=== PATIENT | male | born 1945 | race Two or more races ===

== ENCOUNTER → 2017-12-03 | Outpatient (CLI) | payer MEDICARE ==
[2017-12-03 14:46] LABS: HCT 37.3 % (39.0-53.0); HGB 12.3 gm/dL (13.0-17.5); MCH 29.9 pg (25.0-35.0); MCHC 33.1 g/dL (31.0-37.0); MCV 90.4 fL (80.0-100.0); Mean Platelet Volume 7.6; Platelet Count 166 k/uL (150-450); RBC 4.12 m/uL (4.30-5.90); RDW 13.9 % (11.5-15.5)
[2017-12-03 14:54] LABS: Anion Gap 13 mmol/L; Blood Urea Nitrogen 23 mg/dL (9-20); Calcium 9.4 mg/dL (8.4-10.2); Carbon Dioxide 25 mmol/L (22-30); Chloride 104 mmol/L (98-107); Glucose 96 mg/dL (74-99); Magnesium 1.6 mg/dL (1.6-2.3); Potassium 4.6 mmol/L (3.5-5.1); Sodium 142 mmol/L (137-145)
== END | disposition home or self-care (01) ==
LOC: LABWHC1 14:08
DX: I10 Essential (primary) hypertension (principal)
CPT/HCPCS: 36415; 80048; 83735; 83880; 85027

== ENCOUNTER → 2018-07-18 | Outpatient (CLI) | payer MEDICARE, OTHER ==
[2018-07-18 07:13] LABS: INR 1.1 (<1.2)
== END | disposition home or self-care (01) ==
LOC: LABWHC1 06:36
PROVIDERS: ATTEND Dentist Oral and Maxillofacial Surgery
DX: D68.9 Coagulation defect, unspecified (principal)
CPT/HCPCS: 36415; 85610

== ENCOUNTER → 2019-08-05 | Outpatient (CLI) | payer MEDICARE ==
[2019-08-05 16:33] LABS: INR 1.1 (<1.2); Prothrombin Time 11.5 sec (9.0-12.0)
== END | disposition home or self-care (01) ==
LOC: LABWHC1 15:35
PROVIDERS: ATTEND Dentist Oral and Maxillofacial Surgery
DX: Z51.81 Encounter for therapeutic drug level monitoring (principal); Z79.01 Long term (current) use of anticoagulants
CPT/HCPCS: 36415; 85610

== ENCOUNTER → 2020-06-02 | Outpatient (CLI) | payer MEDICARE ==
[2020-06-02 10:50] LABS: Basophils % (A) 1 %; Eosinophils # (A) 0.1 k/uL (0-0.7); Eosinophils % (A) 1 %; HCT 45.5 % (39.0-53.0); HGB 14.3 gm/dL (13.0-17.5); Lymphocytes # (A) 1.2 k/uL (1.0-4.8); Lymphocytes % (A) 18 %; MCH 29.5 pg (25.0-35.0); MCHC 31.5 g/dL (31.0-37.0); MCV 93.7 fL (80.0-100.0); Mean Platelet Volume 7.5; Monocytes # (A) 0.5 k/uL (0-1.0); Monocytes % (A) 8 %; Neutrophils # (A) 4.6 k/uL (1.3-7.7); Neutrophils % (A) 71 %; Platelet Count 149 k/uL (150-450); RBC 4.85 m/uL (4.30-5.90); RDW 14.1 % (11.5-15.5); WBC 6.6 k/uL (3.8-10.6)
[2020-06-02 10:51] LABS: Appearance,Urine Cloudy (Clear); Bacteria,Urine Rare /hpf; Bilirubin,Urine Negative (Negative); Blood,Urine Small (Negative); Color,Urine Yellow; Glucose,Urine (UA) Negative (Negative); Ketones,Urine Trace (Negative); Leukocyte Esterase,Urine Large (Negative); Mucus,Urine Many /hpf; Nitrite,Urine Negative (Negative); PH, Urine 6.5 (5.0-8.0); Protein,Urine 1+ (Negative); RBC,Urine 15 /hpf (0-5); Specific Gravity,Urine 1.027 (1.001-1.035); Squamous Epithelial Cell,Urine 1 /hpf (0-4); WBC,Urine >182 /hpf (0-5)
[2020-06-02 10:53] LABS: ALT 23 U/L (4-49); AST 23 U/L (17-59); African American GFR (CKD) >90 (>60 ml/min/1.73 sqM); Albumin 4.2 g/dL (3.5-5.0); Alkaline Phosphatase 63 U/L (38-126); Anion Gap 6 mmol/L; Blood Urea Nitrogen 29 mg/dL (9-20); Calcium 10.1 mg/dL (8.4-10.2); Carbon Dioxide 30 mmol/L (22-30); Chloride 105 mmol/L (98-107); Glucose 145 mg/dL (74-99); Non-African American GFR(CKD) 87 (>60 ml/min/1.73 sqM); Potassium 4.4 mmol/L (3.5-5.1); Sodium 141 mmol/L (137-145); Total Bilirubin 0.9 mg/dL (0.2-1.3); Total Protein 7.2 g/dL (6.3-8.2)
== END | disposition home or self-care (01) ==
LOC: LABPAT 09:23
PROVIDERS: ATTEND Urology
DX: Z01.818 Encounter for other preprocedural examination (principal); N40.1 Benign prostatic hyperplasia with lower urinary tract symptoms; E11.9 Type 2 diabetes mellitus without complications; R35.0 Frequency of micturition
CPT/HCPCS: 80053; 81001; 85025; 87086

== ENCOUNTER 2020-06-09 11:13 | Observation (INO) | payer MEDICARE ==
[2020-06-07 11:04] VITALS: BMI 30.1
--- NOTE | 2020-06-08 19:11 | P.GSHP ---
History of Present Illness H&P Date: 06/08/20 75 yo with a history with urine retention, bph with obstruction and incomplete voiding despite floamx bid and finasteride. He has a larger prostate on exam and a heavy trabeculated bladder. He comes for a bipolar turp The risks complications and alternatives have been discussed. 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, no residual effects-states hypertensive encephalopathy., History of Any Multi-Drug Resistant Organisms: None Reported Past Surgical History: Cardiac Ablation Past Anesthesia/Blood Transfusion Reactions: No Reported Reaction Past Psychological History: Anxiety Smoking Status: Former smoker Past Alcohol Use History: Rare Additional Past Alcohol Use History / Comment(s): states hx of casual - social smoker Past Drug Use History: None Reported - Past Family History Mother Family Medical History: No Reported History Medications and Allergies Home Medications Medication Instructions Recorded Confirmed Type Apixaban [Eliquis] 5 mg PO BID 06/07/20 06/07/20 History Atorvastatin [Lipitor] 10 mg PO DAILY 06/07/20 06/07/20 History Carvedilol [Coreg] 25 mg PO BID 06/07/20 06/07/20 History Finasteride [Proscar] 5 mg PO DAILY 06/07/20 06/07/20 History Flecainide Acetate 100 mg PO BID 06/07/20 06/07/20 History Tamsulosin [Flomax] 0.4 mg PO BID 06/07/20 06/07/20 History Vitamin B Complex 1 each PO DAILY 06/07/20 06/07/20 History lisinopriL [Zestril] 5 mg PO DAILY 06/07/20 06/07/20 History metFORMIN HCL [Glucophage] 500 mg PO BID 06/07/20 06/07/20 History Allergies Allergy/AdvReac Type Severity Reaction Status Date / Time No Known Allergies Allergy Verified 06/07/20 09:58 Surgical - Exam - General well developed, well nourished, moderate distress - Eyes PERRL - ENT no hearing loss - Neck trachea midline - Respiratory normal expansion, normal respiratory effort - Cardiovascular Rhythm: irregularly irregular - Abdomen Abdomen: soft, non tender - Genitourinary 40-50 gram prostate. normal penis with no external lesions, testicles present - Integumentary no rash, no growths - Neurologic normal coordination, normal sensation - Musculoskeletal normal gait, normal posture - Psychiatric oriented to time, oriented to person, oriented to place, speech is normal, memory intact Assessment and Plan Assessment: Impression: Bph with obstruction and incomplete voiding. Plan Bipolar turp
[~2020-06-09 11:13] MED LIST: AMPICILLIN 1,000 MG in SODIUM CHLORIDE 0.9% 50 ML IVPB ONE; GENTAMICIN 120 MG in SODIUM CHLORIDE 0.9% 100 ML IVPB ONE
[2020-06-09] MEDS ORDERED: ONDANSETRON 4 MG/2 ML VIAL ONE (12:21)
[2020-06-09 12:26] LABS: Glucose,Whole Blood 105 mg/dL (75-99)
[2020-06-09] MEDS: LACTATED RINGERS 1,000 ML IV SCH ×2 (12:29→17:55)
[2020-06-09] MEDS ORDERED: ONDANSETRON 4 MG/2 ML VIAL IVP ONE (12:29)
[2020-06-09] MEDS ORDERED: DEXAMETHASONE SOD PHOSPHATE 4 MG/ML 1 ML VIAL IVP ONE (12:30)
[2020-06-09] MEDS ORDERED: ePHEDrine SULFATE/0.9% NACL/PF 50 MG/5 ML SYRINGE IV ONE (12:44)
[2020-06-09] MEDS ORDERED: ROCURONIUM 10 MG/ML (10 ML VIAL) IV ONE (12:44)
[2020-06-09] MEDS ORDERED: LIDOCAINE 1% INJ 10MG/ML (20 ML MDV) ONE (12:44)
[2020-06-09] MEDS ORDERED: NEOSTIGMINE 1 MG/ML 10 ML VIAL ONE (12:44)
[2020-06-09] MEDS ORDERED: GLYCOPYRROLATE 0.2 MG/ML 2 ML VIAL ONE (12:44)
[2020-06-09] MEDS ORDERED: MIDAZOLAM 2 MG/2 ML VIAL ONE (12:44)
[2020-06-09] MEDS ORDERED: SUCCINYLCHOLINE CHLORIDE 100 MG/5 ML SYR IV ONE (12:44)
[2020-06-09] MEDS ORDERED: fentaNYL (PF) 50 MCG/ML 2 ML AMP ONE (12:44)
[2020-06-09] MEDS ORDERED: PROPOFOL 10 MG/ML 20 ML VIAL IV ONE (12:44)
[2020-06-09] MEDS ORDERED: LACTATED RINGERS 1,000 ML IV ONE (14:30)
[2020-06-09] MEDS ORDERED: BELLADONNA-OPIUM 16.2-60 MG 1 EACH SUPP RECTAL PRN (15:00)
[2020-06-09] MEDS ORDERED: SODIUM CHLORIDE 0.9% IRRIGATIO 3,000 ML IRRIGATION ONE ×2 (15:02→22:00)
--- NOTE | 2020-06-09 15:07 | P.OP ---
Date of Procedure: 06/09/20 Preoperative Diagnosis: BPH with incomplete bladder emptying, failed medication Postoperative Diagnosis: Same Procedure(s) Performed: Bipolar TURP (large) Anesthesia: TELLY Surgeon: Jag Robert Estimated Blood Loss (ml): 200 Pathology: other (Prostate) Condition: stable Disposition: PACU Indications for Procedure: Patient is 75. He came with marked voiding dysfunction. He has a larger prostate. He is failed medication. He comes for bipolar TURP Description of Procedure: Patient brought operating suite. He was given a general endotracheal anesthesia. He's placed lithotomy position with a sterile prep and drape. The urethra was dilated to 30-Armenian with Olmitz sounds. Under direct vision the 25-Armenian sheath direct vision obturator and Foroblique lenses introduced in urethra. The prostate shows marked lateral lobe obstruction. There is heavy trabeculation of the bladder. With the bipolar resecting loop I first resect the left lateral lobe 12:00 to 6:0 mid prostate and then apically. I then removed the right lateral lobe in the same fashion. I then resect the redundant floor tissue. A state is quite large. I cauterized thoroughly with the bipolar button. Free the bladder of prostatic chips with the Ellik evacuator. The large size of the prostate and continued minor ooze I elected to place a three-way catheter and bring the patient into the hospital for irrigation and observation. A 22-Armenian three-way catheter 30 mL balloon is introduced in the bladder with clear to light pink urine return with a light irrigation Impression successful TURP. The patient be observed in the hospital next 24-48 hours. Once urine is clear be discharged home with a catheter. The catheter remain in 3-5 days post discharge.
[2020-06-09] MEDS ORDERED: HYDROmorphone 0.5 MG/0.5 ML SYRINGE IVP ONE ×2 (15:26→16:04)
[2020-06-09 16:14] LABS: Glucose,Whole Blood 114 mg/dL (75-99)
[2020-06-09] MEDS: carvediloL 12.5 MG TAB PO SCH (17:59)
[2020-06-09] MEDS: metFORMIN 500 MG TAB PO SCH (17:59)
[2020-06-09] MEDS: SODIUM CHLORIDE 0.45% 1,000 ML IV SCH ×2 (18:41)
[2020-06-09 20:21] LABS: Glucose,Whole Blood 242 mg/dL (75-99)
[2020-06-09] MEDS: FLECAINIDE 50 MG TAB PO SCH (20:21)
[2020-06-09] MEDS: DOCUSATE 100 MG CAP PO SCH (20:22)
[2020-06-09] MEDS: BENZOCAINE/MENTHOL LOZENG 1 EACH LOZENGE MUCOUS MEM PRN (22:15)
[2020-06-10] MEDS: SODIUM CHLORIDE 0.45% 1,000 ML IV SCH ×2 (05:23→17:53)
[2020-06-10] MEDS: SODIUM CHLORIDE 0.9% IRRIGATIO 3,000 ML IRRIGATION SCH ×5 (05:24→20:47)
[2020-06-10 06:35] LABS: Glucose,Whole Blood 162 mg/dL (75-99)
[2020-06-10] MEDS: ATORVASTATIN 10 MG TAB PO SCH (07:32)
[2020-06-10] MEDS: FLECAINIDE 50 MG TAB PO SCH ×2 (07:32→20:15)
[2020-06-10] MEDS: DOCUSATE 100 MG CAP PO SCH ×2 (07:32→20:15)
[2020-06-10] MEDS: metFORMIN 500 MG TAB PO SCH ×2 (07:32→16:54)
[2020-06-10] MEDS ORDERED: MAG HYDROX/AL HYDROX/SIMETH 30 ML CUP PO PRN (07:39)
--- NOTE | 2020-06-10 07:41 | P.PN ---
Subjective Progress Note Date: 06/10/20 Principal diagnosis: POD #1, s/p TURP The patient underwent a TURP yesterday. He has experienced heartburn, which she states is improving, but otherwise feels well. Continuous bladder irrigation is running, and the urine is light pink in appearance. Objective - Vital Signs Vital signs: Vital Signs Temp 94.6 F L 06/10/20 07:19 Pulse 66 06/10/20 07:19 Resp 16 06/10/20 07:19 BP 103/68 06/10/20 07:19 Pulse Ox 99 06/10/20 07:19 Intake & Output 06/09/20 06/10/20 06/10/20 18:59 06:59 18:59 Intake Total 1753 Output Total 1600 4750 Balance 153 -4750 Weight 94.8 kg Intake: IV 1753 Output: Urine 1400 4750 Estimated Blood Loss 200 Other: Voiding Method Indwelling Catheter Indwelling Catheter - Constitutional General appearance: Present: cooperative, no acute distress - Gastrointestinal General gastrointestinal: Present: soft. Absent: distended, tenderness - Psychiatric Psychiatric: Present: A&O x's 3, appropriate affect - Labs Labs: Abnormal Lab Results - Last 24 Hours (Table) 06/09/20 06/09/20 06/09/20 Range/Units 12:25 16:10 20:20 POC Glucose (mg/dL) 105 H 114 H 242 H (75-99) mg/dL 06/10/20 Range/Units 06:33 POC Glucose (mg/dL) 162 H (75-99) mg/dL Assessment and Plan (1) BPH with obstruction/lower urinary tract symptoms Current Visit: Yes Status: Acute Code(s): N40.1 - BENIGN PROSTATIC HYPERPLASIA WITH LOWER URINARY TRACT SYMP; N13.8 - OTHER OBSTRUCTIVE AND REFLUX UROPATHY SNOMED Code(s): 399088790 Plan: Maalox has been prescribed. He will require continuous bladder irrigation for at least an additional day.
[2020-06-10] MEDS: carvediloL 12.5 MG TAB PO SCH ×2 (10:34→16:54)
[2020-06-10] MEDS: lisinopriL 5 MG TAB PO SCH (10:35)
[2020-06-10 11:49] LABS: Glucose,Whole Blood 123 mg/dL (75-99)
[2020-06-10 16:44] LABS: Glucose,Whole Blood 121 mg/dL (75-99)
[2020-06-10] MEDS: BENZOCAINE/MENTHOL LOZENG 1 EACH LOZENGE MUCOUS MEM PRN (16:54)
[2020-06-11] MEDS: SODIUM CHLORIDE 0.9% IRRIGATIO 3,000 ML IRRIGATION SCH ×3 (00:51→09:23)
[2020-06-11] MEDS: Acetaminophen-Codeine 300-30mg TAB PO PRN ×2 (01:36→07:44)
[2020-06-11] MEDS: SODIUM CHLORIDE 0.45% 1,000 ML IV SCH (05:58)
[2020-06-11 06:50] LABS: Glucose,Whole Blood 100 mg/dL (75-99)
[2020-06-11] MEDS: carvediloL 12.5 MG TAB PO SCH (07:43)
[2020-06-11] MEDS: DOCUSATE 100 MG CAP PO SCH (07:43)
[2020-06-11] MEDS: ATORVASTATIN 10 MG TAB PO SCH (07:44)
[2020-06-11] MEDS: metFORMIN 500 MG TAB PO SCH (07:44)
[2020-06-11] MEDS: lisinopriL 5 MG TAB PO SCH (07:44)
[2020-06-11] MEDS: FLECAINIDE 50 MG TAB PO SCH (07:45)
[2020-06-11 08:15] VITALS: BP 166/81; PULSE 71; RESP 16; TEMP 98.5
--- NOTE | 2020-06-11 08:53 | P.DS ---
Providers Date of admission: 06/10/20 08:40 Expected date of discharge: 06/11/20 Attending physician: Jag Robert Primary care physician: Neyda Delgado MD - Discharge Diagnosis(es) (1) BPH with obstruction/lower urinary tract symptoms Current Visit: Yes Status: Acute Hospital Course: On the day of admission, the patient underwent an uncomplicated bipolar TURP. His prostate was significantly enlarged. On the first postoperative day, the patient was stable and comfortable. However, he had some bleeding which required continuous bladder irrigation. By the second postoperative day, the bleeding had improved such that continuous bladder irrigation was no longer required. The urine was only faintly pink tinged at that time. Procedures: Cystoscopy, bipolar TURP on 06/09/2020. Patient Condition at Discharge: Good Plan - Discharge Summary Discharge Rx Participant: Yes New Discharge Prescriptions: New Docusate [Colace] 100 mg PO BID #42 capsule No Action Vitamin B Complex 1 each PO DAILY Flecainide Acetate 100 mg PO BID Carvedilol [Coreg] 25 mg PO BID Tamsulosin [Flomax] 0.4 mg PO BID lisinopriL [Zestril] 5 mg PO DAILY metFORMIN HCL [Glucophage] 500 mg PO BID Atorvastatin [Lipitor] 10 mg PO DAILY Apixaban [Eliquis] 5 mg PO BID Finasteride [Proscar] 5 mg PO DAILY Discharge Medication List Apixaban [Eliquis] 5 mg PO BID 06/07/20 [History] Atorvastatin [Lipitor] 10 mg PO DAILY 06/07/20 [History] Carvedilol [Coreg] 25 mg PO BID 06/07/20 [History] Finasteride [Proscar] 5 mg PO DAILY 06/07/20 [History] Flecainide Acetate 100 mg PO BID 06/07/20 [History] Tamsulosin [Flomax] 0.4 mg PO BID 06/07/20 [History] Vitamin B Complex 1 each PO DAILY 06/07/20 [History] lisinopriL [Zestril] 5 mg PO DAILY 06/07/20 [History] metFORMIN HCL [Glucophage] 500 mg PO BID 06/07/20 [History] Docusate [Colace] 100 mg PO BID #42 capsule 06/11/20 [Rx] Follow up Appointment(s)/Referral(s): Jag Robert MD [STAFF PHYSICIAN] - 3 Days Activity/Diet/Wound Care/Special Instructions: Discharge home with Calles catheter to leg bag. Avoid straining. Drink plenty of fluids. Discharge Disposition: HOME SELF-CARE
== END 2020-06-11 10:50 | disposition home or self-care (01) ==
LOC: OR 11:13 → 1SOBS 14:57 → OR 06-10 08:40
PROVIDERS: ADMIT Urology; ATTEND Urology
DX: N40.1 Benign prostatic hyperplasia with lower urinary tract symptoms (principal); N41.0 Acute prostatitis; N13.8 Other obstructive and reflux uropathy; N32.89 Other specified disorders of bladder; R33.8 Other retention of urine; I10 Essential (primary) hypertension; E11.9 Type 2 diabetes mellitus without complications; I48.91 Unspecified atrial fibrillation; F41.9 Anxiety disorder, unspecified; Z79.01 Long term (current) use of anticoagulants; Z79.899 Other long term (current) drug therapy; Z79.84 Long term (current) use of oral hypoglycemic drugs; Z98.890 Other specified postprocedural states; Z86.73 Personal history of transient ischemic attack (TIA), and cerebral infarction without residual deficits; Z87.891 Personal history of nicotine dependence
CPT/HCPCS: 88305; 52601; G0378 ×2; J2250; J1100; J2710; J2405; J2001; J3010; J1580; J0290; J0330; J2704; J1170

== ENCOUNTER → 2023-07-20 | Outpatient (CLI) | payer MEDICARE ==
[2023-07-20 07:31] LABS: African American GFR (CKD) 68 (>60 ml/min/1.73 sqM); Blood Urea Nitrogen 29 mg/dL (9-20); Non-African American GFR(CKD) 59 (>60 ml/min/1.73 sqM)
--- NOTE | 2023-07-20 08:58 | XR ---
EXAMINATION TYPE: XR chest 2V DATE OF EXAM: 07/20/2023 7:07 AM CLINICAL INDICATION:Male, 78 years old with history of C61 PROSTATE CANCER; [facility] COMPARISON: None TECHNIQUE: XR chest 2V Frontal and lateral views of the chest. FINDINGS: Lungs/Pleura: There is no evidence of pleural effusion, focal consolidation, or pneumothorax. Pulmonary vascularity: Unremarkable. Heart/mediastinum: Cardiomediastinal silhouette is enlarged and stable. Musculoskeletal: No acute osseous pathology. IMPRESSION: Cardiomegaly without acute cardiopulmonary disease/process.
--- NOTE | 2023-07-20 10:10 | CT ---
EXAMINATION: CT ABDOMEN AND PELVIS WITH IV CONTRAST DATE OF EXAMINATION: 07/20/2023. COMPARISON: None available. INDICATION: History of prostate cancer. PROCEDURE: Axial CT of the abdomen and pelvis was performed with contrast and sagittal and coronal reformatted images were performed. CT dose lowering techniques were used, to include: automated expos ure control, adjustment for patient size, and/or use of iterative reconstruction. 100 mL of Isovue-30 0 was given intravenously. FINDINGS: LOWER CHEST : The visualized lung bases are clear. There are no pleural or pericardial effusions. ABDOMEN: Liver and Biliary system: Normal. Adrenal glands: Normal. Kidneys and ureters: There is a 1.7 cm cyst in the upper pole of the right kidney. An additional simp le cyst is seen in the interpolar region of the right kidney measuring 3.2 cm. Subcentimeter hypodens ities in the left kidney that is too small fully characterize. Spleen: Normal. Pancreas: Normal. Gallbladder: Normal. Lymph nodes, Peritoneum and mesentery: There is no mesenteric or retroperitoneal lymphadenopathy. Gastrointestinal tract: There are no dilated loops of bowel or free intraperitoneal air. The appe ndix is normal. There is mild sigmoid colonic diverticulosis without evidence of diverticulitis. Aorta/IVC: There is moderate vascular calcification throughout the abdominal aorta without evidence of aneurysmal dilation or dissection. IVC normal. Abdominal wall: Normal. PELVIS: Fluid: There is no free fluid in the pelvis. Lymph Nodes: There is no pelvic or inguinal lymphadenopathy.. Urinary bladder: Normal. BONES: There are no osseous destructive lesions.. ADDITIONAL SIGNIFICANT FINDINGS: The prostate is moderately enlarged. Probable prior TURP. There is heterogeneity also seen diffusely throughout the prostate gland IMPRESSION: 1. No acute process seen within the abdomen or pelvis. 2. Enlarged and heterogeneous prostate may correlate with patient's history of prostate cancer. 2. No definitive evidence of metastatic disease.
--- NOTE | 2023-07-21 10:04 | NM ---
EXAMINATION TYPE: NM bone scan whole body DATE OF EXAM: 07/20/2023 1:39 PM CLINICAL INDICATION:Male, 78 years old with history of C61 PROSTATE CANCER; COMPARISON: CT abdomen pelvis 07/20/2023. TECHNIQUE: Intravenous administration 25.7 mCi Tc 99m MDP followed by multiple scintigraphic images o f the appendicular and axial skeleton. FINDINGS: No abnormal uptake is identified within the appendicular or axial skeleton to suggest metastatic dise ase. There is increased uptake within the bilateral shoulder, sternoclavicular, and sacroiliac joints con sistent with degenerative changes. No other photopenic areas or areas of increased activity are ident ified. Degeneration uptake in the spine. Physiologic radiotracer activity is demonstrated in the kidneys and bladder. IMPRESSION: 1. Nothing to suggest metastatic disease. 2. Right lateral rib uptake compatible with fracture on prior CT.
== END | disposition home or self-care (01) ==
LOC: RADNMMAIN 06:26
PROVIDERS: ATTEND Urology
DX: C61 Malignant neoplasm of prostate (principal); N40.0 Benign prostatic hyperplasia without lower urinary tract symptoms; I51.7 Cardiomegaly
CPT/HCPCS: 82565; 84520; 71046; 74177; 36415; 78306; A9503; Q9967

== ENCOUNTER 2024-02-02 18:26 | Emergency (ER) | payer MEDICARE, SELFPAY ==
[2024-02-02 18:43] VITALS: RESP 16
[2024-02-02 19:29] LABS: Basophils % (A) 1 %; Eosinophils # (A) 0.3 k/uL (0-0.7); Eosinophils % (A) 6 %; HCT 33.8 % (39.0-53.0); HGB 11.2 gm/dL (13.0-17.5); Lymphocytes # (A) 0.7 k/uL (1.0-4.8); Lymphocytes % (A) 14 %; MCH 33.1 pg (25.0-35.0); MCHC 33.1 g/dL (31.0-37.0); MCV 99.9 fL (80.0-100.0); Macrocytosis Slight; Mean Platelet Volume 7.6; Monocytes # (A) 0.4 k/uL (0-1.0); Monocytes % (A) 9 %; Neutrophils # (A) 3.4 k/uL (1.3-7.7); Neutrophils % (A) 68 %; Platelet Count 126 k/uL (150-450); RBC 3.38 m/uL (4.30-5.90); RDW 14.3 % (11.5-15.5)
--- NOTE | 2024-02-02 19:42 | CT ---
EXAMINATION TYPE: CT brain cspine wo con, CT facial bones wo con CT DLP: combined 1246.4 mGycm, Automated exposure control for dose reduction was used. DATE OF EXAM: 02/02/2024 7:30 PM COMPARISON: None. CLINICAL INDICATION:Male, 78 years old with history of trauma; fall, hematoma to right eye TECHNIQUE: Brain: Multiple axial CT images of the brain were obtained without IV contrast. Cspine: Axial CT images from the skull base to the inferior aspect of T2 we obtained without intraven ous contrast. Coronal and sagittal reformatted images were also reviewed. Facial: Axial imaging max of facial structures with sagittal coronal reformats. FINDINGS: Brain: Extra-axial spaces: No abnormal extra-axial fluid collections. Ventricular system: Dilatation in proportion to cerebral atrophy. Cerebral parenchyma: Cerebral atrophy. No acute intraparenchymal hemorrhage or mass effect. The andrea -white junction is well differentiated. Scattered hypoattenuating areas are seen within the white mat ter. Cerebellum: Unremarkable. Mass effect: No evidence of midline shift. Intracranial vasculature: Atherosclerotic calcifications of the intracranial vessels. Calvarium/osseous structures: No depressed skull fracture. Paranasal sinuses and mastoid air cells: Mild scattered mucosal thickening and or secretions. Visualized orbits: Orbital contents are intact. Cervical spine: Fracture: None. Osseous structures: Multilevel degenerative disc disease changes with endplate spurring and disc oste ophyte complex's. Ankylosis of the lateral facets of C3 and C4 bilaterally. Vertebral alignment: With in normal limits. Spinal canal/Neural Foramina: No evidence of significant spinal canal narrowing. Facet joint uncovert ebral joint arthropathy scattered throughout the cervical spine with varying degrees of neural forami nal stenosis. Neural foraminal stenosis worse at C5-C6 bilaterally with moderate to severe and C7-T1 on the left with moderate to severe stenosis. Neck soft tissues: Prevertebral soft tissues are within normal limits. Other: The airway is patent. The nuchal ligament calcifications. The lung apices are relatively unrem arkable. Facial: Right periorbital soft tissue edema/contusion/hematoma. There is no evidence of frac ture, subluxation, dislocation, or significant soft tissue swelling. The orbital contents are unremar kable.The temporal-mandibular joints appear symmetric. The visualized portion of the paranasal sinuse s demonstrate mild scattered mucosal thickening. IMPRESSION: 1. No acute intracranial process. 2. Right periorbital contusion/hematoma , No evidence of fracture. 3. No evidence of cervical spine fracture. 4. Moderate multilevel degenerative disc disease.
--- NOTE | 2024-02-02 19:44 | XR ---
EXAMINATION TYPE: XR pelvis AP view DATE OF EXAM: 02/02/2024 7:40 PM CLINICAL INDICATION:Male, 78 years old with history of Trauma; H COMPARISON: None TECHNIQUE: XR pelvis AP view, examined in a single projection. FINDINGS: There is no evidence of fracture or dislocation. There is no soft tissue abnormality. No a bnormal calcifications are present. The spine appears intact. The hips appear intact. Osteophyte form ation of the superior acetabulum bilaterally with mild joint space narrowing. IMPRESSION: No acute osseous pathology. Mild degeneration changes of the hip.
--- NOTE | 2024-02-02 19:45 | XR ---
EXAMINATION TYPE: XR chest 1V portable DATE OF EXAM: 02/02/2024 7:40 PM CLINICAL INDICATION:Male, 78 years old with history of trauma; COMPARISON: Chest radiographs from 07/20/2023 TECHNIQUE: XR chest 1V portable Frontal view of the chest. FINDINGS: Lungs/Pleura: There is no evidence of pleural effusion, focal consolidation, or pneumothorax. Pulmonary vascularity: Pulmonary vascular congestion. Heart/mediastinum: Cardiomediastinal silhouette is enlarged and stable. Atherosclerotic calcificatio ns are seen in the aorta. Musculoskeletal: No acute osseous pathology. Other findings: None IMPRESSION: Cardiomegaly and mild pulmonary vascular congestion. Correlate with BNP for congestive heart failure.
[2024-02-02 19:48] VITALS: PULSE 66
[2024-02-02 19:49] LABS: INR 0.9 (<1.2); Partial Thromboplastin Time 24.5 sec (22.0-30.0); Prothrombin Time 10.5 sec (10.0-12.5)
[2024-02-02 19:54] LABS: African American GFR (CKD) 66 (>60 ml/min/1.73 sqM); Albumin 4.4 g/dL (3.5-5.0); Anion Gap 8 mmol/L; Blood Urea Nitrogen 35 mg/dL (9-20); Calcium 9.8 mg/dL (8.4-10.2); Carbon Dioxide 26 mmol/L (22-30); Chloride 106 mmol/L (98-107); Glucose 93 mg/dL (74-99); Non-African American GFR(CKD) 57 (>60 ml/min/1.73 sqM); Potassium 4.5 mmol/L (3.5-5.1); Sodium 140 mmol/L (137-145)
[2024-02-02 19:55] LABS: ALT 20 U/L (4-49); AST 27 U/L (17-59); Alcohol <10 mg/dL; Alkaline Phosphatase 89 U/L (38-126); Total Bilirubin 0.6 mg/dL (0.2-1.3)
[2024-02-02] MEDS: SODIUM CHLORIDE 0.9% 500 ML 500 ML IV STA (20:09)
[2024-02-02] MEDS: ACETAMINOPHEN TAB 325 MG TAB PO STA (20:17)
--- NOTE | 2024-02-02 20:47 | ED ---
General Adult HPI - General Chief complaint: Fall Stated complaint: fall Time Seen by Provider: 02/02/24 18:55 Source: patient, EMS, RN notes reviewed, old records reviewed Mode of arrival: EMS Limitations: no limitations - History of Present Illness Initial comments: Patient is an 78-year-old male who presents emergency department complaining of a fall. Patient was fall from standing. Stood up from his chair lost his balance and fell forward striking his face on the ground. Patient is on blood thinners. He has a history of atrial fibrillation. Has a history of CVA and diabetes. Currently only complaint is right periorbital pain where he has a contusion. There is a small amount of bleeding as well which appears to be a laceration versus skin tear versus abrasion. Denies loss of consciousness. Denies neck pain. Denies chest pain or shortness of breath. Presents for further evaluation at this time. Denies any pelvis pain. Denies abdominal pain. Unknown last tetanus shot.Patient was ambulatory after the fall. - Related Data Home Medications Medication Instructions Recorded Confirmed Apixaban [Eliquis] 5 mg PO BID 06/07/20 06/07/20 Atorvastatin [Lipitor] 10 mg PO DAILY 06/07/20 06/07/20 Finasteride [Proscar] 5 mg PO DAILY 06/07/20 06/07/20 Flecainide Acetate [Tambocor] 100 mg PO BID 06/07/20 06/07/20 Tamsulosin [Flomax] 0.4 mg PO BID 06/07/20 06/07/20 Vitamin B Complex 1 each PO DAILY 06/07/20 06/07/20 carvediloL [Coreg] 25 mg PO BID 06/07/20 06/07/20 lisinopriL [Zestril] 5 mg PO DAILY 06/07/20 06/07/20 metFORMIN HCL [Glucophage] 500 mg PO BID 06/07/20 06/07/20 Previous Rx's Medication Instructions Recorded Docusate [Colace] 100 mg PO BID #42 capsule 06/11/20 Allergies Allergy/AdvReac Type Severity Reaction Status Date / Time No Known Allergies Allergy Verified 02/02/24 18:43 Review of Systems ROS Statement: Those systems with pertinent positive or pertinent negative responses have been documented in the HPI. Review of Systems: CONST: Denies fever EYES: Denies blurry vision ENT: Denies nasal congestion C/V: Denies Chest pain RESP: Denies shortness of breath GI: Denies abdominal pain : Denies dysuria SKIN: Denies rash. MSK: Endorses periorbital contusion NEURO: Denies headache ROS Other: All systems not noted in ROS Statement are negative. 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 HEAD: Right periorbital contusion. Negative Perez sign. Negative raccoon eyes. EYES: PERRLA, EOMI, conjunctiva normal, no discharge. Pupils are 3 mm and equal bilaterally. Normal visual acuity. ENT: Hearing grossly intact, normal oropharynx. RESPIRATORY: Clear breath sounds bilaterally. No wheezes, rales, or rhonchi. C/V: Regular rate and rhythm. S1 and S2 auscultated, no edema, peripheral pulses 2+ and intact throughout ABD: Abd is soft, nontender, nondistended EXT: Normal range of motion, no obvious deformity. Pelvis stable. No midline cervical, thoracic, lumbar spine tenderness to palpation. SKIN: No rashes or lesions observed on exposed skin. NEURO: Alert and oriented x 4. Cranial nerves II-XII intact. No focal sensory or strength deficits. GCS of 15. Limitations: no limitations Course Vital Signs 02/02/24 02/02/24 18:35 19:45 Temperature 98.7 F 97.2 F L Pulse Rate 68 66 Respiratory 16 16 Rate Blood Pressure 190/111 189/96 O2 Sat by Pulse 98 99 Oximetry Medical Decision Making - Medical Decision Making Was pt. sent in by a medical professional or institution (, PA, ENVIRONMENTAL MANAGER, urgent care, hospital, or half-way...) When possible be specific @ -No Did you speak to anyone other than the patient for history (EMS, parent, family, police, friend...)? What history was obtained from this source @ -No Did you review nursing and triage notes (agree or disagree)? Why? @ -I reviewed and agree with nursing and triage notes Were old charts reviewed (outside hosp., previous admission, EMS record, old EKG, old radiological studies, urgent care reports/EKG's, half-way records)? Report findings @ -Old charts reviewed from her EMR which shows patient is on Eliquis. Differential Diagnosis (chest pain, altered mental status, abdominal pain women, abdominal pain men, vaginal bleeding, weakness, fever, dyspnea, syncope, headache, dizziness, GI bleed, back pain, seizure, CVA, palpatations, mental health, musculoskeletal)? @ -Differential Musculoskeletal Muscular strain, contusion, ligament sprain, fracture, arthritis, septic arth ritis, bursitis, cellulitis, muscle spasm, nerve compression, DVT, arterial occlusion, herpes zoster, electrolyte abnormality, tumor.... This is not meant to be in all inclusive list. Also included is intracranial injury, facial bone injury. EKG interpreted by me (3pts min.). @ -As above X-rays interpreted by me (1pt min.). @ -Chest x-ray, pelvis x-ray negative for any obvious traumatic injury. CT interpreted by me (1pt min.). @ -CT brain, C-spine, facial bones negative for any obvious bony traumatic injury patient has a right periorbital contusion/hematoma. U/S interpreted by me (1pt. min.). @ -None done What testing was considered but not performed or refused? (CT, X-rays, U/S, labs)? Why? @ -None What meds were considered but not given or refused? Why? @ -None Did you discuss the management of the patient with other professionals (professionals i.e. , PA, ENVIRONMENTAL MANAGER, lab, RT, psych nurse, social work nurse, escalator attendant, teacher, special weapons unit officer, porter sample case)? Give summary @ -No Was smoking cessation discussed for >3mins.? @ -No Was critical care preformed (if so, how long)? @ -No Were there social determinants of health that impacted care today? How? (Homelessness, low income, unemployed, alcoholism, drug addiction, transportation, low edu. Level, literacy, decrease access to med. care, nursing home, rehab)? @ -No Was there de-escalation of care discussed even if they declined (Discuss DNR or withdrawal of care, Hospice)? DNR status @ -No What co-morbidities impacted this encounter? (DM, HTN, Smoking, COPD, CAD, Cancer, CVA, ARF, Chemo, Hep., AIDS, mental health diagnosis, sleep apnea, morbid obesity)? @ -None Was patient admitted / discharged? Hospital course, mention meds given and route, prescriptions, significant lab abnormalities, going to OR and other pertinent info. @ -Based on the patient's presentation and physical exam, presents after a fall on blood thinners. Has a right periorbital contusion. Appears to be a skin tear or abrasion, no lack repair required. Offered tetanus booster which was declined. Patient does not meet trauma activation criteria. Patient will be given IV fluids, as well as Tylenol for analgesia. Will obtain CT brain, C- spine, facial bones, chest and pelvis x-ray. Patient in agreement this plan. Vital signs are within acceptable limits. EKG shows no signs of acute ischemia. Imaging negative for any obvious bony traumatic injury. Only obvious trauma is right periorbital contusion. Laboratory studies remarkable for mild anemia of 11.2. Remainder the labs unremarkable. On reevaluation, I updated the patient. He will be discharged home at this time. He expressed understanding. Recommended icing the contusion as well as [id number] analgesia medications for pain. He was in agreement this plan. I instructed the patient to follow up with their PCP in the next 1-3 days. I explained that the patient should return to the emergency department if they experience any worsening symptoms. Strict return precautions were discussed with the patient. The patient expressed understanding of these instructions. I ans wered all questions that the patient had. The patient was discharged home in good condition with their prescriptions and follow up information. Undiagnosed new problem with uncertain prognosis? @ -No Drug Therapy requiring intensive monitoring for toxicity (Heparin, Nitro, Insulin, Cardizem)? @ -No Were any procedures done? @ -No Diagnosis/symptom? @ -Fall, right periorbital contusion Acute, or Chronic, or Acute on Chronic? @ -Acute Uncomplicated (without systemic symptoms) or Complicated (systemic symptoms)? @ -Uncomplicated Side effects of treatment? @ -No Exacerbation, Progression, or Severe Exacerbation? @ -No Poses a threat to life or bodily function? How? (Chest pain, [place], MA, pneumonia, PE, COPD, DKA, ARF, appy, cholecystitis, CVA, Diverticulitis, Homicidal, Suicidal, threat to staff... and all critical care pts) @ -Unlikely - Lab Data Result diagrams: 02/02/24 19:15 02/02/24 19:15 Lab Results 02/02/24 02/02/24 02/02/24 Range/Units 19:05 19:10 19:15 WBC 5.0 (3.8-10.6) k/uL RBC 3.38 L (4.30-5.90) m/uL Hgb 11.2 L (13.0-17.5) gm/dL Hct 33.8 L (39.0-53.0) % MCV 99.9 (80.0-100.0) fL MCH 33.1 (25.0-35.0) pg MCHC 33.1 (31.0-37.0) g/dL RDW 14.3 (11.5-15.5) % Plt Count 126 L (150-450) k/uL MPV 7.6 Neutrophils % 68 % Lymphocytes % 14 % Monocytes % 9 % Eosinophils % 6 % Basophils % 1 % Neutrophils # 3.4 (1.3-7.7) k/uL Lymphocytes # 0.7 L (1.0-4.8) k/uL Monocytes # 0.4 (0-1.0) k/uL Eosinophils # 0.3 (0-0.7) k/uL Basophils # 0.0 (0-0.2) k/uL Macrocytosis Slight PT (10.0-12.5) sec INR (<1.2) APTT (22.0-30.0) sec Sodium (137-145) mmol/L Potassium (3.5-5.1) mmol/L Chloride (98-107) mmol/L Carbon Dioxide (22-30) mmol/L Anion Gap mmol/L BUN (9-20) mg/dL Creatinine (0.66-1.25) mg/dL Est GFR (CKD-EPI)AfAm (>60 ml/min/1.73 sqM) Est GFR (CKD-EPI)NonAf (>60 ml/min/1.73 sqM) Glucose (74-99) mg/dL Calcium (8.4-10.2) mg/dL Total Bilirubin (0.2-1.3) mg/dL AST (17-59) U/L ALT (4-49) U/L Alkaline Phosphatase (38-126) U/L Total Protein (6.3-8.2) g/dL Albumin (3.5-5.0) g/dL Urine Color Urine Appearance (Clear) Urine pH (5.0-8.0) Ur Specific [place] (1.001-1.035) Urine Protein (Negative) Urine Glucose (UA) (Negative) Urine Ketones (Negative) Urine Blood (Negative) Urine Nitrite (Negative) Urine Bilirubin (Negative) Urine Urobilinogen (<2.0) mg/dL Ur Leukocyte Esterase (Negative) Serum Alcohol mg/dL Blood Type O Positive Blood Type Confirm O Positive Blood Type Recheck No Previous Record Bld Type Recheck Status CABO Indicated Antibody Screen NEGATIVE Spec Expiration Date 02/05/2024230402/02/24 02/02/24 02/02/24 Range/Units 19:15 19:15 20:14 WBC (3.8-10.6) k/uL RBC (4.30-5.90) m/uL Hgb (13.0-17.5) gm/dL Hct (39.0-53.0) % MCV (80.0-100.0) fL MCH (25.0-35.0) pg MCHC (31.0-37.0) g/dL RDW (11.5-15.5) % Plt Count (150-450) k/uL MPV Neutrophils % % Lymphocytes % % Monocytes % % Eosinophils % % Basophils % % Neutrophils # (1.3-7.7) k/uL Lymphocytes # (1.0-4.8) k/uL Monocytes # (0-1.0) k/uL Eosinophils # (0-0.7) k/uL Basophils # (0-0.2) k/uL Macrocytosis PT 10.5 (10.0-12.5) sec INR 0.9 (<1.2) APTT 24.5 (22.0-30.0) sec Sodium 140 (137-145) mmol/L Potassium 4.5 (3.5-5.1) mmol/L Chloride 106 (98-107) mmol/L Carbon Dioxide 26 (22-30) mmol/L Anion Gap 8 mmol/L BUN 35 H (9-20) mg/dL Creatinine 1.19 (0.66-1.25) mg/dL Est GFR (CKD-EPI)AfAm 66 (>60 ml/min/1.73 sqM) Est GFR (CKD-EPI)NonAf 57 (>60 ml/min/1.73 sqM) Glucose 93 (74-99) mg/dL Calcium 9.8 (8.4-10.2) mg/dL Total Bilirubin 0.6 (0.2-1.3) mg/dL AST 27 (17-59) U/L ALT 20 (4-49) U/L Alkaline Phosphatase 89 (38-126) U/L Total Protein 7.0 (6.3-8.2) g/dL Albumin 4.4 (3.5-5.0) g/dL Urine Color Colorless Urine Appearance Clear (Clear) Urine pH 6.5 (5.0-8.0) Ur Specific [place] 1.018 (1.001-1.035) Urine Protein Negative (Negative) Urine Glucose (UA) Negative (Negative) Urine Ketones Negative (Negative) Urine Blood Negative (Negative) Urine Nitrite Negative (Negative) Urine Bilirubin Negative (Negative) Urine Urobilinogen <2.0 (<2.0) mg/dL Ur Leukocyte Esterase Negative (Negative) Serum Alcohol <10 mg/dL Blood Type Blood Type Confirm Blood Type Recheck Bld Type Recheck Status Antibody Screen Spec Expiration Date - EKG Data -: EKG Interpreted by Me EKG Comments: 12-lead Electrocardiogram Interpretation Note EKG was reviewed and interpreted by myself. 12-lead ECG performed at 1848 is interpreted by me as revealing normal sinus rhythm at a rate of 66 beats per minute. [place] is normal. [place] interval is 221 ms and prolonged. QRS duration is 103 ms, QTc is 444 ms.. There were no ST or T wave abnormalities to suggest myocardial ischemia or injury. R wave progression across the precordium was satisfactory. By my interpretation this EKG is non-diagnostic for acute ische brian. Disposition Clinical Impression: Fall, Periorbital contusion of right eye Disposition: HOME SELF-CARE Condition: Good Instructions (If sedation given, give patient instructions): Fall Prevention for Older Adults (ED), Facial Contusion (ED) Additional Instructions: You have a periorbital contusion on the right side of your face. Use ov [id number] analgesia medications for pain control and ice it. Swelling should go down within a few days. If something changes or worsens including change in vision, worsening pain, please return for evaluation. Follow-up with your PCP in the next 24 to 48 hours. Is patient prescribed a controlled substance at d/c from ED?: No Referrals: Jh Ortiz MD [Primary Care Provider] - 1-2 days Time of Disposition: 20:45
[2024-02-02 20:53] LABS: Appearance,Urine Clear (Clear); Bilirubin,Urine Negative (Negative); Blood,Urine Negative (Negative); Color,Urine Colorless; Glucose,Urine (UA) Negative (Negative); Ketones,Urine Negative (Negative); Leukocyte Esterase,Urine Negative (Negative); Nitrite,Urine Negative (Negative); PH, Urine 6.5 (5.0-8.0); Protein,Urine Negative (Negative); Specific Gravity,Urine 1.018 (1.001-1.035); Urobilinogen,Urine <2.0 mg/dL (<2.0)
[2024-02-02 21:11] VITALS: BP 181/92; TEMP 97.7
[2024-02-02 21:16] LABS: Amphetamine Screen,Urine Not Detected (NotDetected); Barbiturate Screen,Urine Not Detected (NotDetected); Benzodiazepines Screen,Urine Not Detected (NotDetected); Cocaine Screen,Urine Not Detected (NotDetected); Methadone Screen, Urine Not Detected (NotDetected); Opiate Screen,Urine Not Detected (NotDetected); Oxycodone Screen, Urine Not Detected (NotDetected); Phencyclidine Screen,Urine Not Detected (NotDetected); Tricyclic Antidepressant,Urine Not Detected (NotDetected); Urn Cannabinoid Scrn Not Detected (NotDetected)
== END 2024-02-02 21:26 | disposition home or self-care (01) ==
LOC: EC 18:26
DX: S00.11XA Contusion of right eyelid and periocular area, initial encounter (principal); Z87.891 Personal history of nicotine dependence; W01.190A Fall on same level from slipping, tripping and stumbling with subsequent striking against furniture, initial encounter
CPT/HCPCS: 36415; 93005; 86900; 86901; 80053; 85025; 85610; 85730; 86850; 81003; 80306; 72170; 71045; 72125; 70486; 70450; 99285; G0480; 80320

== ENCOUNTER → 2024-02-18 | Outpatient (CLI) | payer MEDICARE ==
--- NOTE | 2024-02-18 13:31 | US ---
EXAMINATION TYPE: US carotid duplex BILAT DATE OF EXAM: 02/18/2024 COMPARISON: NONE CLINICAL INDICATION: Male, 78 years old with history of R55 syncope and collapse; TECHNIQUE: Carotid duplex ultrasound examination. Indirect Doppler criteria was utilized. FINDINGS: EXAM MEASUREMENTS: RIGHT: Peak Systolic Velocity (PSV) cm/sec ----- Right CCA: 65.8 ----- Right ICA: 44.8 ----- Right ECA: 76.6 ICA/CCA ratio: 0.7 RIGHT: End Diastole cm/sec ----- Right CCA: 12.0 ----- Right ICA: 13.1 ----- Right ECA: 9.1 LEFT: Peak Systolic Velocity (PSV) cm/sec ----- Left CCA: 69.4 ----- Left ICA: 61.5 ----- Left ECA: 73.3 ICA/CCA ratio: 0.9 LEFT: End Diastole cm/sec ----- Left CCA: 18.1 ----- Left ICA: 18.1 ----- Left ECA: 8.3 VERTEBRALS (direction of flow): Right Vertebral: Antegrade Left Vertebral: Antegrade Rhythm: INVOICE CLERK NOTES: No significant stenosis seen. Plaque formation noted bilaterally IMPRESSION: No ultrasound evidence for hemodynamically significant stenosis of the bilateral visualized carotid a rterial systems. Criteria for Assigning % of Stenosis / Diameter reduction (Estimation based on the indirect measurements of the internal carotid artery velocities (ICA PSV). 1. Normal (no stenosis)=ICA PSV < 125 cm/s: ratio < 2.0: ICA EDV<40 cm/s. 2. Less than 50% stenosis=ICA PSV < 125 cm/s: ratio < 2.0: ICA EDV<40 cm/s. 3. 50 to 69% stenosis=ICA PSV of 125 to 230 cm/s: ration 2.0 ? 4.0: ICA EDV 40-100 cm/s. 4. Greater than 70% stenosis to near occlusion= ICA PSV > 230 cm/s: ratio > 4.0: ICA EDV > 100 cm/s. 5. Near occlusion= ICA PSV velocities may be low or undetectable: variable ratio and ICA EDV. 6. Total occlusion=unable to detect flow.
== END | disposition home or self-care (01) ==
LOC: RADUSWWP 12:17
PROVIDERS: ATTEND Internal Medicine Geriatric Medicine
DX: R55 Syncope and collapse (principal)
CPT/HCPCS: 93880